=== PATIENT | female | born 1980 | race African-American/Black ===

== ENCOUNTER 2018-01-02 09:42 | Emergency (ER) | payer OTHER ==
[2018-01-02 09:55] VITALS: PULSE 99; TEMP 98.5; BMI 28.3
[2018-01-02] MEDS ORDERED: ACETAMINOPHEN 325 MG TABLET (FP) PO ONE (10:22)
[2018-01-02] MEDS ORDERED: ACETAMINOPHEN 325 MG TABLET (FP) ONE (10:26)
[2018-01-02] MEDS ORDERED: FLUTICASONE PROP 0.05% 16 GM NASAL SPRAY NS ONE (10:28)
--- NOTE | 2018-01-02 10:28 | PDOC ---
History of Present Illness - General History Source: Patient Exam Limitations: No Limitations - History of Present Illness Initial Comments: 01/02/18 10:30 The patient is a 37 year old female with a past medical history of hypertension (on amlodipine 5mg) who presents to the emergency department for evaluation of elevated blood pressure. Patient reports an elevated blood pressure level of 152 /102 which prompted her to visit the ED. She reports an associated frontal headache which is worsened with changes in position. Patient notes she has not taken her blood pressure medication in the last week because she was seeing normal levels. Allergies: NKDA, seasonal allergies Social History: No reported alcohol, cigarette, or drug use. Surgical History: None. PCP: Dr. Mukesh Stoddard. <Kirsty Jacobsen - Last Filed: 01/02/18 10:30> <Tereza Lane - Last Filed: 01/02/18 13:31> - General Chief Complaint: Blood Pressure Problem Stated Complaint: HIGH BP Past History <Kirsty Jacobsen - Last Filed: 01/02/18 10:30> - Past Medical History COPD: No HTN: Yes - Suicide/Smoking/Psychosocial Hx Smoking History: Never smoked Information on smoking cessation initiated: No Hx Alcohol Use: No Drug/Substance Use Hx: No Substance Use Type: None <Tereza Lane - Last Filed: 01/02/18 13:31> - Past Medical History Allergies/Adverse Reactions: Allergies Allergy/AdvReac Type Severity Reaction Status Date / Time No Known Allergies Allergy Verified 01/02/18 09:47 Home Medications: Ambulatory Orders Amlodipine Besylate 5 mg PO DAILY 01/02/18 Fluticasone Prop 0.05% Nasal [Flonase -] 1 spray NS DAILY #1 bot 01/02/18 Review of Systems - Review of Systems Able to Perform ROS?: Yes Comments:: GENERAL/CONSTITUTIONAL: No fever or chills. No weakness. HEAD, EYES, EARS, NOSE AND THROAT: (+)Nasal congestion. No change in vision. No ear pain or discharge. No sore throat. CARDIOVASCULAR: No chest pain or shortness of breath. RESPIRATORY: No cough, wheezing, or hemoptysis. GASTROINTESTINAL: No nausea, vomiting, diarrhea or constipation. GENITOURINARY: No dysuria, frequency, or change in urination. MUSCULOSKELETAL: No joint or muscle swelling or pain. No neck or back pain. SKIN: No rash NEUROLOGIC: (+)Headache. No vertigo, loss of consciousness, or change in strength/sensation. ENDOCRINE: No increased thirst. No abnormal weight change. HEMATOLOGIC/LYMPHATIC: No anemia, easy bleeding, or history of blood clots. ALLERGIC/IMMUNOLOGIC: No hives or skin allergy. <Kirsty Jacobsen - Last Filed: 01/02/18 10:30> *Physical Exam - Vital Signs Last Vital Signs Temp Pulse Resp BP Pulse Ox 98.5 F 99 H 16 134/78 100 01/02/18 09:47 01/02/18 09:47 01/02/18 09:47 01/02/18 09:47 01/02/18 09:47 <Kirsty Jacobsen - Last Filed: 01/02/18 10:30> - Vital Signs Last Vital Signs Temp Pulse Resp BP Pulse Ox 98.5 F 99 H 16 134/78 100 01/02/18 09:47 01/02/18 09:47 01/02/18 09:47 01/02/18 09:47 01/02/18 09:47 - Physical Exam General Appearance: Yes: Appropriately Dressed HEENT: positive: Normal Voice, Other (frontal sinus tenderness. maxillary sinus tenderness. bilateral turbinate enlargmenet. post pharynx cobblestoning. ) <Tereza Lane - Last Filed: 01/02/18 13:31> Heart Score/ECG Review #1 General ECG Interpretation: Sinus Rhythm, Normal Rate (66), Normal Intervals, No acute ischemic changes Compared to previous ECG there are: Other (TwI III only) <Tereza Lane - Last Filed: 01/02/18 13:31> ED Treatment Course - LABORATORY CBC & Chemistry Diagram: 01/02/18 10:39 01/02/18 10:39 <Tereza Lane - Last Filed: 01/02/18 13:31> Medical Decision Making - Medical Decision Making 01/02/18 10:23 29-year-old female history of hypertension previously on amlodipine 5 mg states she stopped it for the last week U today complaining of a gradual onset headache. Headache is frontal and in the maxillary and nasal bridge area she does have a history of ALLERGIES it is somewhat positional worse with bending over and worse in the a.m. no blurry vision no nausea vomiting no focal weakness she took her amlodipine today after checking her blood pressure however was 150/100. Did not take anything for pain prior to arrival On exam patient has bilateral sinus tenderness in the frontal and ethmoid region she has bilateral turbinate enlargement suggested of sinusitis normal neurological exam. Patient's blood pressure is now improved Differential sinus headache essential hypertension we will check CBC and electrolyte to rule out any anemia or other electrolyte abnormalities causing for headache pain control with Tylenol we'll also rule out as a cause likely DC home with Flonase 01/02/18 13:04 pt labs unremarkable. bpimproved. headache improved dc homel 01/02/18 13:31 rpt 120/82 <[address] - Last Filed: 01/02/18 13:31> *DC/Admit/Observation/Transfer - Attestations Scribe Attestion: Documentation prepared by Kirsyt Jacobsen, acting as medical affairs manager for Tereza Lane MD. <Kirsty Jacobsen - Last Filed: 01/02/18 10:30> <Tereza Lane - Last Filed: 01/02/18 13:31> Diagnosis at time of Disposition: Sinusitis, Hypertension - Discharge Dispostion Disposition: HOME Condition at time of disposition: Improved - Prescriptions Prescriptions: Fluticasone Prop 0.05% Nasal [Flonase -] 1 spray NS DAILY #1 bot - Referrals Referrals: Mukesh Stoddard MD [Primary Care Provider] - - Patient Instructions Printed Discharge Instructions: Sinusitis, DI for High Blood Pressure Additional Instructions: He should use Flonase 1 spray each nostril daily. He can take Motrin 600 mg every 8 hours as needed for pain he should continue to take her amlodipine 5 mg daily please follow-up with your primary care doctor within 3 days for repeat blood pressure check to discuss current medications he should avoid any ALLERGY or sinus medication that contains phenylephrine as this may further elevate her blood pressure return for any focal weakness changed her vision vomiting or any concerns - Post Discharge Activity
[2018-01-02 10:53] LABS: EOS % 1.5 % (0-4.5); HEMOGLOBIN 14.8 GM/dL (10.7-15.3); LYMPH % 41.6 % (8-40); MCH 29.4 pg (25.7-33.7); MCHC 34.4 g/dl (32.0-36.0); MEAN CELL VOLUME 85.5 fl (80-96); MEAN PLT VOLUME 8.2 fl (7.5-11.1); MONO % 8.5 % (3.8-10.2); NEUT % 47.4 % (42.8-82.8); PLATELET COUNT 298 K/MM3 (134-434); RBC 5.03 M/mm3 (3.60-5.2); RDW 12.9 % (11.6-15.6); WHITE BLOOD COUNT 5.8 K/mm3 (4.0-10.0)
[2018-01-02] MEDS ORDERED: IBUPROFEN 600 MG TABLET (FP) PO ONE ×2 (11:24→11:56)
[2018-01-02 11:28] LABS: ALBUMIN 3.9 g/dl (3.4-5.0); ALK PHOS 77 U/L (45-117); ANION GAP 5 MMOL/L (8-16); BILIRUBIN,TOTAL 0.4 mg/dL (0.2-1.0); BLOOD UREA NITROGEN 9 mg/dL (7-18); CALCIUM 9.2 mg/dL (8.5-10.1); CHLORIDE 110 mmol/L (98-107); CO2 24 mmol/L (21-32); CREATININE 0.8 mg/dL (0.55-1.02); GLUCOSE,RANDOM 89 mg/dL (74-106); SGPT/ALT 43 U/L (12-78); SODIUM 139 mmol/L (136-145); TOT PROT 7.8 g/dl (6.4-8.2)
[2018-01-02 11:30] LABS: SGOT/AST 22 U/L (15-37)
[2018-01-02 13:32] VITALS: BP 120/82
--- NOTE | 2018-01-02 18:51 | EKG ---
Test Reason : Blood Pressure : / mmHG Vent. Rate : 066 BPM Atrial Rate : 066 BPM P-R Int : 138 ms QRS Dur : 088 ms QT Int : 360 ms P-R-T Axes : 048 051 018 degrees QTc Int : 377 ms NORMAL SINUS RHYTHM WITH SINUS ARRHYTHMIA NORMAL ECG NO PREVIOUS ECGS AVAILABLE Confirmed by ROXANA MEZA, RAGHAVENDRA ([id number]) on 01/02/2018 6:51:20 PM Referred By: Confirmed By:RAGHAVENDRA SCHMIDT MD
== END 2018-01-02 13:38 | disposition home or self-care (01) ==
LOC: JER 09:42
DX: I10 Essential (primary) hypertension (principal); J01.90 Acute sinusitis, unspecified
CPT/HCPCS: 36415; 80053; 84703; 85025; 93005; 93010; 99284-25

== ENCOUNTER 2020-01-14 09:39 | Emergency (ER) | payer OTHER ==
[2020-01-14 09:52] VITALS: TEMP 98.8; BMI 28.5
[2020-01-14 12:38] LABS: BASO % 0.6 % (0-2.0); EOS % 1.1 % (0-4.5); HEMATOCRIT 45.8 % (32.4-45.2); HEMOGLOBIN 15.4 GM/dL (10.7-15.3); LYMPH % 40.7 % (8-40); MCH 30.1 pg (25.7-33.7); MCHC 33.6 g/dl (32.0-36.0); MEAN CELL VOLUME 89.7 fl (80-96); MEAN PLT VOLUME 8.2 fl (7.5-11.1); MONO % 7.4 % (3.8-10.2); NEUT % 50.2 % (42.8-82.8); PLATELET COUNT 285 K/MM3 (134-434); RDW 13.1 % (11.6-15.6); WHITE BLOOD COUNT 6.9 K/mm3 (4.0-10.0)
[2020-01-14 13:00] LABS: ALBUMIN 3.8 g/dl (3.4-5.0); ALK PHOS 72 U/L (45-117); ANION GAP 6 MMOL/L (8-16); BILIRUBIN,TOTAL 0.8 mg/dL (0.2-1); BLOOD UREA NITROGEN 12.4 mg/dL (7-18); CALCIUM 9.5 mg/dL (8.5-10.1); CHLORIDE 110 mmol/L (98-107); CO2 24 mmol/L (21-32); CREATININE 0.7 mg/dL (0.55-1.3); GLUCOSE,RANDOM 86 mg/dL (74-106); POTASSIUM 4.7 mmol/L (3.5-5.1); SGOT/AST 29 U/L (15-37); SGPT/ALT 30 U/L (13-61); SODIUM 139 mmol/L (136-145); TOT PROT 7.9 g/dl (6.4-8.2)
[2020-01-14] MEDS ORDERED: KETOROLAC TROMETHAMINE 15 MG/ML VIAL IVPUSH ONE (13:11)
[2020-01-14] MEDS ORDERED: KETOROLAC TROMETHAMINE 15 MG/ML VIAL ONE (13:34)
[2020-01-14] MEDS ORDERED: KETOROLAC TROMETHAMINE 15 MG/ML VIAL IM ONE (13:39)
--- NOTE | 2020-01-14 13:46 | PDOC ---
History of Present Illness - General Chief Complaint: Pain Stated Complaint: LT SIDE PAIN Time Seen by Provider: 01/14/20 10:37 History Source: Patient Exam Limitations: No Limitations - History of Present Illness Initial Comments: 01/14/20 13:39 Patient is a 39-year-old female with no past medical history who presents to the ED with complaint of pain under her left breast for the last 1 month. She states the pain increases with movement and when she is tender to the touch. She denies any fevers or chills. She denies any recent long travel. She denies any OCP or hormone use. She states she was on the Depo shot but was last on that in July 2019. She has not been taking anything for her symptoms. She denies any cardiac history or any family history of sudden cardiac . Past History - Medical History Allergies/Adverse Reactions: Allergies Allergy/AdvReac Type Severity Reaction Status Date / Time No Known Allergies Allergy Verified 01/14/20 09:50 Home Medications: Ambulatory Orders Amlodipine Besylate 5 mg PO DAILY 01/02/18 Fluticasone Prop 0.05% Nasal [Flonase -] 1 spray NS DAILY #1 bot 01/02/18 COPD: No HTN: Yes - Reproductive History Is Patient Now?: No - Immunization History Immunization Up to Date: Yes - Psycho-Social/Smoking History Smoking History: Never smoked - Substance Abuse Hx (Audit-C & DAST Scrn) How often the patient has a drink containing alcohol: Never Score: In Men: 4 or > Positive; In Women: 3 or > Positive: 0 Screen Result (Pos requires Nsg. Audit-10AR): Negative In the last yr the pt used illegal drug/Rx for NonMed reason: No Score: Yes response is considered Positive: 0 Screen Result (Positive result requires Nsg. DAST-10): Negative Review of Systems - Review of Systems Comments:: 01/14/20 13:41 - Review of Systems Able to Perform ROS?: Yes Constitutional: No: Fever, Chills, Loss of Appetite, Night Sweats, Weakness HEENTM: No: Eye Pain, Vision changes, Ear Pain, Throat Pain, Throat Swelling, Mouth Pain, Difficulty Swallowing Respiratory: No: Cough, Shortness of Breath, Wheezing, Sputum Production Cardiac (ROS): No: Chest Pain, Chest Tightness, Palpitations, Irregular Heart Beat, Edema; Positive: chest wall pain ABD/GI: No: Nausea, Vomiting, Abdominal Pain, Diarrhea : No Dysuria, No Hematuria, No Frequency, No Urgency Musculoskeletal: No: Muscle Pain, Back Pain, Joint Pain, Muscle Weakness, Neck Pain Integumentary: No: Lesions, Rash Neurological: No: Headache, Numbness, Tingling, Weakness, Speech Difficulties *Physical Exam - Vital Signs Last Vital Signs Temp Pulse Resp BP Pulse Ox 98.8 F 79 18 119/72 100 01/14/20 09:50 01/14/20 09:50 01/14/20 09:50 01/14/20 09:50 01/14/20 09:50 - Physical Exam 01/14/20 13:41 - Physical Exam General Appearance: Nourished, Appropriately Dressed, No Distress HEENT: EOMI, Normal Voice, No Pharyngeal Erythema, No Muffled/Hoarse voice, No Tonsillar Exudate, No Tonsillar Erythema, No Nasal Congestion, No Rhinorrhea, Hearing Grossly Normal, TMs Normal, No TM Bulging, No TM Dullness, No TM Erythema Neck: Supple, No Lymphadenopathy (R), No Lymphadenopathy (L), No Rigidity, No Decreased range of motion Respiratory/Chest: Lungs Clear, Normal Breath Sounds. No Respiratory Distress, No Accessory Muscle Use Cardiovascular: Regular Rhythm, Regular Rate, S1, S2; left inferior anterior chest wall tenderness to palpation. Just under the left breast. Pain is reproducible. No flail chest. No ecchymosis. No edema. No contusions. Gastrointestinal/Abdominal: Normal Bowel Sounds, Soft. Non-tender, No Guarding, No Rebound, No Rigidity Musculoskeletal: Normal Inspection. No Decreased Range of Motion Extremity: Normal Capillary Refill, Normal Inspection Integumentary: Normal Color, Dry. 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 NML intact, Fully Oriented, Alert, Normal Mood/Affect, Normal Response ED Treatment Course - LABORATORY CBC & Chemistry Diagram: 01/14/20 12:00 01/14/20 12:00 - ADDITIONAL ORDERS Additional order review: Laboratory Results 01/14/20 01/14/20 12:00 12:00 Sodium 139 Potassium 4.7 Chloride 110 H Carbon Dioxide 24 Anion Gap 6 L BUN 12.4 Creatinine 0.7 Est GFR (CKD-EPI)AfAm 125.61 Est GFR (CKD-EPI)NonAf 108.38 Random Glucose 86 Calcium 9.5 Magnesium 2.0 Total Bilirubin 0.8 AST 29 ALT 30 Alkaline Phosphatase 72 Creatine Kinase 160 Troponin I < 0.02 Total Protein 7.9 Albumin 3.8 Serum , Qual Negative 01/14/20 12:00 RBC 5.10 MCV 89.7 MCHC 33.6 RDW 13.1 MPV 8.2 Neutrophils % 50.2 Lymphocytes % 40.7 H Monocytes % 7.4 Eosinophils % 1.1 Basophils % 0.6 - RADIOLOGY Radiology Studies Ordered: Category Date Time Status CHEST PA & LAT [RAD] Stat Radiology 01/14/20 10:48 Completed Medical Decision Making - Medical Decision Making 01/14/20 13:42 Assessment: Patient is a 39-year-old female with left chest wall pain for the last 1 month. Plan: -Labs including cardiac labs ordered -Wells' Score for PE 0.0 pts and low risk -EKG done at 10: 12 AM shows normal sinus rhythm at 86 bpm with a sinus a rrhythmia. No ST/T wave abnormalities. -The patient has been given Toradol after a negative test. She has been made aware that her pain is likely secondary to musculoskeletal pain but she should still follow-up with a body stylist. The patient is low risk for a PE. She has been given strict return precautions such as severe chest pain, shortness of breath, dizziness, syncope or any other worsening symptoms. She understands and agrees with this treatment plan and she is stable for discharge. Discharge - Discharge Information Problems reviewed: Yes Clinical Impression/Diagnosis: Chest wall pain Condition: Stable Disposition: HOME - Follow up/Referral Referrals: Giorgi Bryan MD [Primary Care Provider] - Call tomorrow José Miguel Brady MD [Staff Physician] - (Cardiology: call Thursday for a f/u a ppointment within 3-4 days. ) - Patient Discharge Instructions Patient Printed Discharge Instructions: DI for Musculoskeletal Pain, DI for Atypical Chest Pain Additional Instructions: Get plenty rest and drink plenty of fluids. Take ibuprofen for pain. Avoid any strenuous activity until you are cleared by your primary doctor or body stylist. Return for worsening chest pain, shortness of breath, neck or arm pain, dizziness, fainting or any other worsening symptoms. - Post Discharge Activity Work/Back to School Note: Back to Work
[2020-01-14 14:00] VITALS: BP 115/78; PULSE 76
--- NOTE | 2020-01-14 14:57 | EKG ---
Test Reason : Blood Pressure : / mmHG Vent. Rate : 086 BPM Atrial Rate : 086 BPM P-R Int : 140 ms QRS Dur : 092 ms QT Int : 348 ms P-R-T Axes : 056 047 025 degrees QTc Int : 416 ms NORMAL SINUS RHYTHM WITH SINUS ARRHYTHMIA NORMAL ECG WHEN COMPARED WITH ECG OF 02-JAN-2018 10:48, NO SIGNIFICANT CHANGE WAS FOUND Confirmed by Itz Hansen ([id number]) on 01/14/2020 2:56:58 PM Referred By: Confirmed By:Itz Hansen
== END 2020-01-14 13:50 | disposition home or self-care (01) ==
LOC: JER 09:39
PROC: 3E0233Z Introduction of Anti-inflammatory into Muscle, Percutaneous Approach (ICD-10-PCS; principal; 2020-01-14)
DX: R07.89 Other chest pain (principal)
CPT/HCPCS: 36415; 71046-TC-FY; 80053; 82550; 82553; 83735; 84484; 84703; 85025; 93005; 93010; 99285-25

== ENCOUNTER 2020-02-21 12:07 | Emergency (ER) | payer OTHER ==
[2020-02-21 12:15] VITALS: BP 141/84; PULSE 72; TEMP 98.6; BMI 28.1
--- NOTE | 2020-02-21 12:15 | PDOC ---
Rapid Medical Evaluation Time Seen by Provider: 02/21/20 12:12 Medical Evaluation: Allergies Allergy/AdvReac Type Severity Reaction Status Date / Time No Known Allergies Allergy Verified 01/14/20 09:50 02/21/20 12:12 39 year old female no pmhx complaining of JOSÉ x 2 weeks worsening today with associated blurry vision and dizziness. PE: Benign neuro exam Plan: CT Labs Pt to precede to ED for further eval
[2020-02-21] MEDS ORDERED: ACETAMINOPHEN/CAFFEINE/BUTALBITAL 1 TAB PO ONE (12:16)
[2020-02-21] MEDS ORDERED: ACETAMINOPHEN/CAFFEINE/BUTALBITAL 1 TAB ONE (12:32)
--- NOTE | 2020-02-21 12:33 | PDOC ---
History of Present Illness - General Chief Complaint: Headache Stated Complaint: HEADACHE Time Seen by Provider: 02/21/20 12:12 History Source: Patient - History of Present Illness Timing/Duration: reports: other Severity: Yes: severe Past History - Medical History Allergies/Adverse Reactions: Allergies Allergy/AdvReac Type Severity Reaction Status Date / Time No Known Allergies Allergy Verified 02/21/20 12:12 Home Medications: Ambulatory Orders Amlodipine Besylate 5 mg PO DAILY 01/02/18 Fluticasone Prop 0.05% Nasal [Flonase -] 1 spray NS DAILY #1 bot 01/02/18 COPD: No HTN: Yes - Reproductive History Is Patient Now?: No - Immunization History Immunization Up to Date: Yes - Psycho-Social/Smoking History Smoking History: Never smoked Have you smoked in the past 12 months: No - Substance Abuse Hx (Audit-C & DAST Scrn) How often the patient has a drink containing alcohol: Never Score: In Men: 4 or > Positive; In Women: 3 or > Positive: 0 Screen Result (Pos requires Nsg. Audit-10AR): Negative In the last yr the pt used illegal drug/Rx for NonMed reason: No Score: Yes response is considered Positive: 0 Screen Result (Positive result requires Nsg. DAST-10): Negative Review of Systems - Review of Systems Constitutional: No: Fever ABD/GI: Yes: Nausea Neurological: Yes: Headache, Dizziness. 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 Patient states for the past several months has had almost daily, frontal, headaches, described as throbbing in nature with an intensity of 9 out of 10, at times associated with dizziness, and nausea. Takes Tylenol which does relieve pain. No unexplained weight loss. Not on control. States she presents today because while at work, headache reoccurred and had dizziness that was usually worse than in the past. No vertigo, visual changes, focal weakness or syncope. Patient states she has never had any work-up for her headache but has attempted to make an appointment with her PMD but unable to get an appointment in the near future see exam Persistent JOSÉ Appears chronic in nature No w/u in past No unexplained weight loss Stable w/ neuro intact -pain control -CT given ? worsening sxs -anticipate dc w/ neuro f/u 02/21/20 14:18 Patient's urine neg and CT head was unremarkable. Patient states she feels much better. Will dc to continue Tylenol and follow-up with Dr. Edge of neurology for further evaluation of her headaches Discharge - Discharge Information Problems reviewed: Yes Clinical Impression/Diagnosis: Headache Qualifiers: Headache type: unspecified Headache chronicity pattern: unspecified pattern Intractability: not intractable Qualified Code(s): R51.9 - Headache, unspecified Condition: Improved Disposition: HOME - Follow up/Referral Referrals: Giorgi Bryan MD [Primary Care Provider] - Jasiel Edge MD [Staff Physician] - - Patient Discharge Instructions Patient Printed Discharge Instructions: DI for Headache Additional Instructions: The cause of your headache is unclear at this time but your CT was unremarkable. Your urine was negative Please follow-up with Dr. Edge of neurology for further evaluation Continue taking tylenol as needed for pain. You can also take motrin or exedrine - Post Discharge Activity Work/Back to School Note: Back to Work
[2020-02-21] MEDS ORDERED: METOCLOPRAMIDE HCL INJECTION 10 MG/2 ML VIAL IVPB ONE (12:36)
[2020-02-21] MEDS ORDERED: KETOROLAC TROMETHAMINE 30 MG/1 ML VIAL IVPUSH ONE (12:37)
[2020-02-21] MEDS ORDERED: METOCLOPRAMIDE HCL INJECTION 10 MG/2 ML VIAL ONE (12:55)
[2020-02-21] MEDS ORDERED: KETOROLAC TROMETHAMINE 30 MG/1 ML VIAL ONE (12:55)
--- OUTSIDE RECORDS SUMMARY | 2020-02-21 12:58 | XMS ---
:1980 Author Organization [facility] Support Name Relationship Address Phone REG, REGENCY Unavailable [address] [place] [address] [place] [address] REG Unavailable [address] [place] [address] LAYLA BERRY [address] [place] [address] LAYLA BERRY Unavailable [address] [place] [address] Re-disclosure Warning The records that you are about to access may contain information from federally- assisted alcohol or drug abuse programs. If such information is present, then the following federally mandated warning applies: This information has been disclosed to you from records protected by federal confidentiality rules (42 CFR part 2). The federal rules prohibit you from making any further disclosure of this information unless further disclosure is expressly permitted by the written consent of the person to whom it pertains or as otherwise permitted by 42 CFR part 2. A general authorization for the release of medical or other information is NOT sufficient for this purpose. The Federal rules restrict any use of the information to criminally investigate or prosecute any alcohol or drug abuse patient.The records that you are about to access may contain highly sensitive health information, the redisclosure of which is protected by Article 27-F of the [facility] Public Health law. If you continue you may haveaccess to information: Regarding HIV / AIDS; Provided by facilities licensed or operated by the [facility] Office of Mental Health; or Provided by the [facility] Office for People With Developmental Disabilities. If such information is present, then the following [facility] mandated warning applies: This information has been disclosed to you from confidential records which are protected by state law. State law prohibits you from making any further disclosure of this information without the specific written consent of the person to whom it pertains, or as otherwise permitted by law. Any unauthorized further disclosure in violation of state law may result in a fine or fci sentence or both. A general authorization for the release of medical or other information is NOT sufficient authorization for further disclosure. Insurance Providers Payer name Policy type Policy ID Covered Covered constitution party's Policy P mamadou / Coverage constitution party ID relationship to Cool Inf ormation type cool [employer] [id number] SP [id number] HEALTHCARE PPO O C I G N A H O [id number] M O [employer] [id number] SP [id number] ADMIN Results ID Date Data Source [id number] 10/27/2019 12:00:00 AM EDT [facility] Name Value Range Interpretation Code Description Data Anne rce(s) Supporting Document(s ) nCoV [facility] RNA XXX DAGO+probe- Imp This lab was ordered by [facility] and reported by [employer] ID Date Data Source [id number] 10/11/2019 12:00:00 AM EDT [facility] Name Value Range Interpretation Code Description Data Anne rce(s) Supporting Document(s ) nCoV [facility] RNA XXX DAGO+probe- Imp This lab was ordered by [facility] and reported by [employer] ID Date Data Source [id number] 08/18/2019 12:00:00 AM EDT [facility] Name Value Range Interpretation Code Description Data Anne rce(s) Supporting Document(s ) nCoV [facility] RNA XXX DAGO+probe- Imp This lab was ordered by [facility] and reported by [employer] Procedure
[2020-02-21 13:42] LABS: BASO % 0.6 % (0-2.0); EOS % 2.3 % (0-4.5); LYMPH % 45.5 % (8-40); MCH 29.3 pg (25.7-33.7); MCHC 33.4 g/dl (32.0-36.0); MEAN CELL VOLUME 87.9 fl (80-96); MEAN PLT VOLUME 7.9 fl (7.5-11.1); MONO % 8.2 % (3.8-10.2); NEUT % 43.4 % (42.8-82.8); PLATELET COUNT 319 K/MM3 (134-434); RBC 4.78 M/mm3 (3.60-5.2); RDW 13.5 % (11.6-15.6); WHITE BLOOD COUNT 5.8 K/mm3 (4.0-10.0)
[2020-02-21 14:34] LABS: ALBUMIN 3.8 g/dl (3.4-5.0); BILIRUBIN,TOTAL 0.4 mg/dL (0.2-1); BLOOD UREA NITROGEN 12.3 mg/dL (7-18); CALCIUM 9.7 mg/dL (8.5-10.1); CREATININE 0.7 mg/dL (0.55-1.3); POTASSIUM 4.4 mmol/L (3.5-5.1); TOT PROT 7.7 g/dl (6.4-8.2)
== END 2020-02-21 14:40 | disposition home or self-care (01) ==
LOC: JER 12:07
PROC: 3E0333Z Introduction of Anti-inflammatory into Peripheral Vein, Percutaneous Approach (ICD-10-PCS; principal; 2020-02-21)
PROC: 3E033GC Introduction of Other Therapeutic Substance into Peripheral Vein, Percutaneous Approach (ICD-10-PCS; 2020-02-21)
DX: R51.9 Headache, unspecified (principal)
CPT/HCPCS: 36415; 70450-TC; 80053; 84703; 85025; 99284-25; C9803; U0003

== ENCOUNTER 2020-12-19 20:35 | Emergency (ER) | payer OTHER ==
[2020-12-19 21:07] VITALS: BP 133/86; PULSE 86; TEMP 98.5; BMI 27.8
== END 2020-12-19 22:34 | disposition home or self-care (01) ==
LOC: JERFT 20:35
DX: M25.512 Pain in left shoulder (principal); M25.562 Pain in left knee; X50.0XXA Overexertion from strenuous movement or load, initial encounter
CPT/HCPCS: 73030-TC-LT-FY; 99283-25

== ENCOUNTER 2021-08-28 09:45 | Emergency (ER) | payer OTHER ==
[2021-08-28 10:03] VITALS: BP 128/78; PULSE 79; TEMP 97.9; BMI 28.7
[2021-08-28] MEDS ORDERED: LIDOCAINE 5% TOPICAL PATCH TP ONE (10:35)
[2021-08-28] MEDS ORDERED: diazePAM 2 MG TABLET PO ONE (10:35)
[2021-08-28] MEDS ORDERED: KETOROLAC TROMETHAMINE 30 MG/1 ML VIAL IM ONE (10:36)
[2021-08-28 11:35] LABS: BASO % 0.6 % (0-2.0); EOS % 0.8 % (0-4.5); HEMATOCRIT 39.9 % (32.4-45.2); HEMOGLOBIN 14.2 GM/dL (10.7-15.3); LYMPH % 41.1 % (8-40); MCH 29.9 pg (25.7-33.7); MCHC 35.5 g/dl (32.0-36.0); MEAN CELL VOLUME 84.3 fl (80-96); MEAN PLT VOLUME 7.8 fl (7.5-11.1); MONO % 8.5 % (3.8-10.2); PLATELET COUNT 295 10^3/uL (134-434); RBC 4.74 M/mm3 (3.60-5.2); RDW 14.1 % (11.6-15.6); WHITE BLOOD COUNT 5.2 K/mm3 (4.0-10.0)
[2021-08-28] MEDS ORDERED: LIDOCAINE 5% TOPICAL PATCH ONE (11:42)
[2021-08-28] MEDS ORDERED: diazePAM 2 MG TABLET ONE (11:42)
[2021-08-28] MEDS ORDERED: KETOROLAC TROMETHAMINE 30 MG/1 ML VIAL ONE (11:43)
[2021-08-28 11:57] LABS: CHLORIDE 110 mmol/L (98-107); SODIUM 139 mmol/L (136-145)
[2021-08-28 11:58] LABS: CALCIUM 9.4 mg/dL (8.5-10.1)
[2021-08-28 11:59] LABS: ALBUMIN 3.8 g/dl (3.4-5.0); ANION GAP 8 MMOL/L (8-16); CO2 22 mmol/L (21-32); GLUCOSE,RANDOM 98 mg/dL (74-106)
[2021-08-28 12:01] LABS: BLOOD UREA NITROGEN 10.3 mg/dL (7-18)
[2021-08-28 12:02] LABS: CREATININE 0.7 mg/dL (0.55-1.3); SGOT/AST 14 U/L (15-37)
[2021-08-28 12:04] LABS: SGPT/ALT 25 U/L (13-61); TOT PROT 7.8 g/dl (6.4-8.2)
[2021-08-28 12:05] LABS: ALK PHOS 57 U/L (45-117)
[2021-08-28 12:06] LABS: BILIRUBIN,TOTAL 1.2 mg/dL (0.2-1)
[2021-08-28] MEDS ORDERED: LIDOCAINE PATCH REMOVAL MC ONE (22:00)
== END 2021-08-28 12:54 | disposition home or self-care (01) ==
LOC: JER 09:45
PROC: 3E023GC Introduction of Other Therapeutic Substance into Muscle, Percutaneous Approach (ICD-10-PCS; principal; 2021-08-28)
DX: N64.4 Mastodynia (principal)
CPT/HCPCS: 36415; 71046-TC-FY; 80053; 84484; 84703; 85025; 93005; 93010; 99285-25

== ENCOUNTER 2022-04-27 12:54 | Emergency (ER) | payer OTHER ==
[2022-04-27 13:03] VITALS: BP 146/58; PULSE 77; RESP 20; TEMP 98.4; BMI 28.4
[2022-04-27] MEDS ORDERED: LIDOCAINE VISCOUS 2% ORAL/TOP 15 ML UNIT-DOSE CUP MM ONE (13:13)
[2022-04-27] MEDS ORDERED: LIDOCAINE VISCOUS 2% ORAL/TOP 15 ML UNIT-DOSE CUP ONE (13:22)
[2022-04-27] MEDS ORDERED: MAG HYDROX/AL HYDROX/SIMETH -MYLANTA- ORAL SUSPENSION PO ONE (14:17)
[2022-04-27] MEDS ORDERED: MAG HYDROX/AL HYDROX/SIMETH 30 ML UNIT-DOSE CUP ONE (14:30)
== END 2022-04-27 15:01 | disposition home or self-care (01) ==
LOC: JER 12:54
DX: K20.80 Other esophagitis without bleeding (principal)
CPT/HCPCS: 99283-25

== ENCOUNTER 2023-09-28 09:33 | Emergency (ER) | payer OTHER ==
[2023-09-28 09:47] VITALS: TEMP 98.4; BMI 27.9
[2023-09-28] MEDS ORDERED: ACETAMINOPHEN 500 MG TABLET (FP) ONE (11:36)
[2023-09-28] MEDS: ACETAMINOPHEN 500 MG TABLET (FP) PO ONE (11:37)
[2023-09-28 11:56] LABS: BASO % 1.1 % (0-2.0); EOS % 2.5 % (0-4.5); HEMATOCRIT 36.6 % (32.4-45.2); HEMOGLOBIN 12.6 GM/dL (10.7-15.3); LYMPH % 43.8 % (8-40); MCH 29.5 pg (25.7-33.7); MCHC 34.3 g/dl (32.0-36.0); MEAN CELL VOLUME 85.9 fl (80-96); MEAN PLT VOLUME 7.3 fl (7.5-11.1); MONO % 8.9 % (3.8-10.2); NEUT % 43.7 % (42.8-82.8); PLATELET COUNT 321 10^3/uL (134-434); RBC 4.26 M/mm3 (3.60-5.2); RDW 13.8 % (11.6-15.6)
[2023-09-28 12:15] LABS: POTASSIUM 3.7 mmol/L (3.5-5.1)
[2023-09-28 12:18] LABS: ALBUMIN 3.5 g/dl (3.4-5.0); BLOOD UREA NITROGEN 13.8 mg/dL (7-18); MAGNESIUM 1.9 mg/dL (1.8-2.4)
[2023-09-28 12:21] LABS: CREATININE 0.9 mg/dL (0.55-1.3)
[2023-09-28 12:22] LABS: BILIRUBIN,TOTAL 0.4 mg/dL (0.2-1)
[2023-09-28 12:23] LABS: TOT PROT 7.2 g/dl (6.4-8.2)
[2023-09-28 15:15] VITALS: BP 121/74; PULSE 65; RESP 20
== END 2023-09-28 16:07 | disposition home or self-care (01) ==
LOC: JER 09:33
DX: R07.2 Precordial pain (principal); M94.0 Chondrocostal junction syndrome [Tietze]
CPT/HCPCS: 36415; 71045-TC-FY; 80053; 83735; 84484; 84703; 85025; 93005; 93010; 99285-25

== ENCOUNTER 2023-10-21 09:02 | Emergency (ER) | payer OTHER ==
[2023-10-21 10:14] LABS: PH,URINE 5.5 (5.0-8.0); URINE APPEARANCE CLEAR; URINE BILIRUBIN NEGATIVE (NEGATIVE); URINE COLOR YELLOW; URINE GLUCOSE (UA) NEGATIVE (NEGATIVE); URINE KETONE 1+ (NEGATIVE); URINE LEUK ESTERASE NEGATIVE (NEGATIVE); URINE NITRITE NEGATIVE (NEGATIVE); URINE PROTEIN NEGATIVE (NEGATIVE)
[2023-10-21 10:29] LABS: HCG,QUALITATIVE URINE Positive
[2023-10-21 12:14] VITALS: TEMP 98.3; BMI 27.9
[2023-10-21] MEDS ORDERED: ACETAMINOPHEN 325 MG TABLET (FP) ONE (12:29)
[2023-10-21] MEDS: ACETAMINOPHEN 325 MG TABLET (FP) PO ONE (12:34)
[2023-10-21 13:23] VITALS: BP 124/81; PULSE 97; RESP 20
== END 2023-10-21 14:36 | disposition home or self-care (01) ==
LOC: JER 09:02
DX: O26.891 Other specified pregnancy related conditions, first trimester (principal); R10.32 Left lower quadrant pain; R10.2 Pelvic and perineal pain; R11.0 Nausea; Z3A.01 Less than 8 weeks gestation of pregnancy
CPT/HCPCS: 36415; 76817-TC; 81003; 84702; 84703; 87086; 99284-25